=== PATIENT | male | born 1995 | race Caucasian/White ===

== ENCOUNTER 2019-04-04 23:51 | Emergency (ER) | payer MEDICAID, OTHER ==
[2019-04-05 00:03] VITALS: BP 152/82; PULSE 64
[2019-04-05] MEDS ORDERED: Ketorolac 60 MG/2 ML SDV IM ONE (00:18)
[2019-04-05] MEDS ORDERED: Amoxicillin/Clavulanate K 875-125 MG Tab PO ONE (00:18)
[2019-04-05] MEDS ORDERED: traMADol 50 MG Tab PO ONE ×2 (00:18→00:23)
--- NOTE | 2019-04-05 00:18 | EDM.PDOC ---
ED HPI GENERAL MEDICAL PROBLEM - General Chief Complaint: General Stated Complaint: RIGHT EAR PLUGGED? Time Seen by Provider: 04/05/19 00:11 Source of Information: Reports: Patient History Limitations: Reports: No Limitations - History of Present Illness INITIAL COMMENTS - FREE TEXT/NARRATIVE: 23 YO WM presents to ER complaining of right ear pain x 2 days. Pt reports his ear began to hurt and then he developed fullness and decreased hearing in his right ear. Pt reports using cerumenex ear drops without relief. Pt denies fever/ chills, no nausea/vomiting, no dizziness or headache and denies any recent trauma to right ear Duration: Day(s): (2) Location: Reports: Other (right ear pain) Quality: Reports: Ache Severity: Moderate Improves with: Reports: None Worsens with: Reports: None Associated Symptoms: Reports: No Other Symptoms Treatments HALL DIRECTOR: Reports: NSAIDS Right Ear Pain Score (Numeric/FACES): 8 - Related Data Allergies Allergy/AdvReac Type Severity Reaction Status Date / Time No Known Allergies Allergy Verified 04/04/19 23:53 Home Meds: Home Meds Amoxicillin/Potassium Clav [Augmentin 875-125 Tablet] 1 each PO BID #19 tablet 04/05/19 [Rx] traMADol [Ultram] 50 mg PO Q4H PRN #10 tab 04/05/19 [Rx] Past Medical History - Past Health History Medical/Surgical History: Denies Medical/Surgical History HEENT History: Reports: Other (See Below) Musculoskeletal History: Reports: Back Pain, Chronic Endocrine/Metabolic History: Reports: Obesity/BMI 30+ Social & Family History - Family History Family Medical History: Noncontributory - Tobacco Use Smoking Status *Q: Current Some Day Smoker Years of Tobacco use: 7 Packs/Tins Daily: 0.5 - Caffeine Use Caffeine Use: Reports: Soda - Recreational Drug Use Recreational Drug Use: Yes Drug Use in Last 12 Months: Yes Recreational Drug Type: Reports: Marijuana/Hashish Recreational Drug Use Frequency: Daily ED ROS GENERAL - Review of Systems Review Of Systems: See Below Constitutional: Reports: No Symptoms HEENT: Reports: Ear Pain. Denies: Rhinitis, Vertigo Respiratory: Reports: No Symptoms Cardiovascular: Reports: No Symptoms Endocrine: Reports: No Symptoms GI/Abdominal: Reports: No Symptoms : Reports: No Symptoms Musculoskeletal: Reports: No Symptoms Skin: Reports: No Symptoms Neurological: Reports: No Symptoms Psychiatric: Reports: No Symptoms Hematologic/Lymphatic: Reports: No Symptoms Immunologic: Reports: No Symptoms ED EXAM, GENERAL - Physical Exam Exam: See Below Exam Limited By: No Limitations General Appearance: Alert, WD/WN, No Apparent Distress Ears: Normal TMs Ear Exam: Right Ear: Discharge, Erythema, Swelling, Tenderness, Left Ear: Canal Normal, Bilateral Ear: Auricle Normal, TM normal Nose: Normal Inspection, Normal Mucosa, No Blood Throat/Mouth: Normal Inspection, Normal Lips, Normal Teeth, Normal Gums, Normal Oropharynx, Normal Voice, No Airway Compromise Head: Atraumatic, Normocephalic Neck: Normal Inspection, Supple, Non-Tender, Full Range of Motion Respiratory/Chest: No Respiratory Distress, Lungs Clear, Normal Breath Sounds, No Accessory Muscle Use, Chest Non-Tender Cardiovascular: Normal Peripheral Pulses, Regular Rate, Rhythm, No Edema, No Gallop, No JVD, No Murmur, No Rub GI/Abdominal: Normal Bowel Sounds, Soft, Non-Tender, No Organomegaly, No Distention, No Abnormal Bruit, No Mass Back Exam: Normal Inspection, Full Range of Motion, NT Extremities: Normal Inspection, Normal Range of Motion, Non-Tender, Normal Capillary Refill, No Pedal Edema Neurological: Alert, Oriented, CN II-XII Intact, Normal Cognition, Normal Gait, Normal Reflexes, No Motor/Sensory Deficits Psychiatric: Normal Affect Skin Exam: Warm, Dry, Intact, Normal Color, No Rash Lymphatic: No Adenopathy Course - Vital Signs Last Recorded V/S: Last Vital Signs Temp 36.2 C 04/04/19 23:54 Pulse 64 04/04/19 23:54 Resp 16 04/04/19 23:54 BP 152/82 H 04/04/19 23:54 Pulse Ox 93 L 04/04/19 23:54 Departure - Departure Time of Disposition: 00:27 Disposition: Home, Self-Care 01 Condition: Good Clinical Impression: Otitis externa Qualifiers: Otitis externa type: diffuse Chronicity: acute Laterality: right Qualified Code (s): H60.311 - Diffuse otitis externa, right ear - Discharge Information Prescriptions: Amoxicillin/Potassium Clav [Augmentin 875-125 Tablet] 1 each PO BID #19 tablet traMADol [Ultram] 50 mg PO Q4H PRN #10 tab PRN Reason: Pain Instructions: Otitis Externa, [id number] Referrals: Sheila Harman PA-C [Physician] - Additional Instructions: 1. discharge home 2. cipro otic 3 drop to affected ear BID x 10 days 3. tramadol 50mg every 4-6 hours PRN pain 4. motrin 600mg every 6 hours x 5 days 5. augmentin 875mg every 12 hours x 10 days 6. follow up in clinic in 2 days for a recheck 7. return to ER for worsening symptoms - Assessment/Plan Assessment:: 1. right otitis externa Plan: 1. discharge home 2. cipro otic 3 drop to affected ear BID x 10 days 3. tramadol 50mg every 4-6 hours PRN pain 4. motrin 600mg every 6 hours x 5 days 5. augmentin 875mg every 12 hours x 10 days 6. follow up in clinic in 2 days for a recheck 7. return to ER for worsening symptoms
[2019-04-05] MEDS ORDERED: Ciprofloxacin/Hydrocortisone Otic Susp 10 ML Bottle EARRT SCH (00:30)
== END 2019-04-05 00:45 | disposition home or self-care (01) ==
LOC: KA.ED 23:51
DX: H60.311 Diffuse otitis externa, right ear (principal); E66.9 Obesity, unspecified; Z68.38 Body mass index [BMI] 38.0-38.9, adult; F17.210 Nicotine dependence, cigarettes, uncomplicated
CPT/HCPCS: 96372; 99282; A9270; J1885; 99283

== ENCOUNTER 2019-11-25 22:40 | Emergency (ER) | payer SELFPAY ==
[2019-11-25] MEDS ORDERED: Alum Hydrox/Mag Hydrox/Simeth 30 ML, Lidocaine 2% 15 ML PO ONE ×2 (22:54)
[2019-11-25 23:15] VITALS: BP 115/63
--- NOTE | 2019-11-25 23:15 | EDM.PDOC ---
ED HPI GENERAL MEDICAL PROBLEM - General Chief Complaint: General Stated Complaint: Abdominal Pain Time Seen by Provider: 11/25/19 23:06 Source of Information: Reports: Patient History Limitations: Reports: No Limitations - History of Present Illness INITIAL COMMENTS - FREE TEXT/NARRATIVE: Patient is a 24-year-old gentleman who presents to the emergency department this evening via private vehicle with a complaint of abdominal pain. Patient states at approximately 2030 this evening He developed epigastric discomfort. Patient told different versions of his story several times between the nurse and myself. Patient initially said that he awoke from sleep with epigastric discomfort. Then he change his story and said that he was lightheaded and went to sleep and when he woke he took Motrin. Patient change his story again and said he took Tylenol not Motrin. No one else is available for confirmation. Patient does not appear intoxicated or under the influence. Patient denies chest pain, shortness of breath, fever, out of area travel, upper respiratory symptoms, cough, nausea, vomiting, diarrhea, or taking illicit drugs. Onset: Today Onset Time: 20:30 Duration: Hour(s): Location: Reports: Abdomen Quality: Reports: Burning Severity: Mild Improves with: Reports: None Worsens with: Reports: None Associated Symptoms: Reports: No Other Symptoms. 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 Epigastric Pain Score (Numeric/FACES): 8 - Related Data Allergies Allergy/AdvReac Type Severity Reaction Status Date / Time No Known Allergies Allergy Verified 11/25/19 22:45 Home Meds: Home Meds Ibuprofen 200 mg PO Q8H PRN 11/25/19 [History] Past Medical History - Past Health History Medical/Surgical History: Denies Medical/Surgical History HEENT History: Reports: Other (See Below) Musculoskeletal History: Reports: Back Pain, Chronic Endocrine/Metabolic History: Reports: Obesity/BMI 30+ Social & Family History - Family History Family Medical History: Noncontributory - Tobacco Use Smoking Status *Q: Current Every Day Smoker Years of Tobacco use: 6 Packs/Tins Daily: 0.5 - Caffeine Use Caffeine Use: Reports: None - Recreational Drug Use Recreational Drug Use: No ED ROS GENERAL - Review of Systems Review Of Systems: Comprehensive ROS is negative, except as noted in HPI. Constitutional: Reports: No Symptoms HEENT: Reports: No Symptoms Respiratory: Reports: No Symptoms Cardiovascular: Reports: No Symptoms Endocrine: Reports: No Symptoms GI/Abdominal: Reports: Abdominal Pain : Reports: No Symptoms Musculoskeletal: Reports: No Symptoms Skin: Reports: No Symptoms Neurological: Reports: No Symptoms Psychiatric: Reports: No Symptoms Hematologic/Lymphatic: Reports: No Symptoms Immunologic: Reports: No Symptoms ED EXAM, GENERAL - Physical Exam Exam: See Below Exam Limited By: No Limitations General Appearance: Alert, WD/WN, No Apparent Distress Eye Exam: Bilateral Eye: Normal Inspection Nose: Normal Inspection, Normal Mucosa, No Blood Throat/Mouth: Normal Inspection, Normal Oropharynx, No Airway Compromise Head: Atraumatic, Normocephalic Neck: Normal Inspection, Supple Respiratory/Chest: No Respiratory Distress, Lungs Clear, Normal Breath Sounds, No Accessory Muscle Use, Chest Non-Tender Cardiovascular: Normal Peripheral Pulses, Regular Rate, Rhythm, No Murmur GI/Abdominal: Normal Bowel Sounds, Soft, Non-Tender, No Organomegaly, No Distention, No Abnormal Bruit, No Mass Back Exam: Normal Inspection. No: CVA Tenderness (L), CVA Tenderness (R) Extremities: Normal Inspection, No Pedal Edema Neurological: Alert, Oriented, Normal Cognition Psychiatric: Normal Affect, Normal Mood Skin Exam: Warm, Dry, Intact, Normal Color, No Rash Lymphatic: No Adenopathy Course - Vital Signs Last Recorded V/S: Last Vital Signs Temp 97.3 F 11/25/19 22:46 Pulse 56 L 11/25/19 22:46 Resp 20 11/25/19 22:46 BP 114/46 L 11/25/19 22:46 Pulse Ox 97 11/25/19 22:46 - Orders/Labs/Meds Meds: Medications Discontinued Medications Generic Name Dose Route Start Last Admin Trade Name Freq PRN Reason Stop Dose Admin Al Hydroxide/Mg Hydroxide 30 0 ml 11/25/19 22:54 11/25/19 23:01 ml/ Lidocaine HCl 15 ml PO 11/25/19 22:55 45 ml ONETIME ONE Administration - Re-Assessments/Exams Free Text/Narrative Re-Assessment/Exam: 11/25/19 23:21 Patient afebrile, vital signs stable, discomfort relieved after GI cocktail. Patient will follow-up with PCP Departure - Departure Time of Disposition: 23:24 Disposition: Home, Self-Care 01 Condition: Good Clinical Impression: GERD (gastroesophageal reflux disease) Qualifiers: Esophagitis presence: esophagitis presence not specified Qualified Code(s): K21.9 - Gastro-esophageal reflux disease without esophagitis - Discharge Information Instructions: Indigestion, [id number], Heartburn, [id number], Food Choices for Gastroesophageal Reflux Disease, Adult, [id number] Referrals: Alicia Muller MD [Physician] - Additional Instructions: Follow-up at [facility] on Thursday. Return to emergency department sooner if symptoms continue or worsen Sepsis Event Note - Evaluation Sepsis Screening Result: No Definite Risk - Focused Exam Vital Signs: Vital Signs Temp Pulse Resp BP Pulse Ox 11/25/19 22:46 97.3 F 56 L 20 114/46 L 97 Date Exam was Performed: 11/25/19 Time Exam was Performed: 23:06 - Assessment/Plan Assessment:: GERD Plan: Follow-up with PCP
[2019-11-25 23:25] VITALS: PULSE 73
== END 2019-11-25 23:30 | disposition home or self-care (01) ==
LOC: KA.ED 22:40
DX: K21.9 Gastro-esophageal reflux disease without esophagitis (principal); E66.9 Obesity, unspecified; Z68.41 Body mass index [BMI] 40.0-44.9, adult; F17.210 Nicotine dependence, cigarettes, uncomplicated
CPT/HCPCS: 99283; A9270

== ENCOUNTER 2020-03-10 20:50 | Emergency (ER) | payer SELFPAY ==
--- NOTE | 2020-03-10 21:25 | EDM.PDOC ---
ED HPI GENERAL MEDICAL PROBLEM - General Chief Complaint: Abdominal Pain Stated Complaint: STOMACHE ACHE Time Seen by Provider: 03/10/20 21:08 Source of Information: Reports: Patient History Limitations: Reports: No Limitations - History of Present Illness INITIAL COMMENTS - FREE TEXT/NARRATIVE: Patient is a 24-year-old gentleman who presents to the emergency department via private vehicle with his mother for complaint of abdominal pain. Patient states that he believes he is dehydrated. He was at a fair this afternoon and after eating a large meal developed abdominal pain. States abdominal pain was epigastric area. Patient states that he had one episode of vomiting, but since has not been nauseous. Patient was seen here in November for same concerns. Patient states he drank approximately 5-10 ounce glasses of water today. At about 730 p.m., he had the isolated episode of vomiting. Patient denies chest pain, fever, diarrhea, flank pain or suspected covid exposure, Onset: Today Location: Reports: Abdomen Severity: Mild Improves with: Reports: None Worsens with: Reports: None Associated Symptoms: Reports: No Other Symptoms - Related Data Allergies Allergy/AdvReac Type Severity Reaction Status Date / Time No Known Allergies Allergy Verified 03/10/20 21:08 Home Meds: Home Meds Ibuprofen 200 mg PO Q8H PRN 11/25/19 [History] Past Medical History - Past Health History Medical/Surgical History: Denies Medical/Surgical History HEENT History: Reports: Other (See Below) Musculoskeletal History: Reports: Back Pain, Chronic Endocrine/Metabolic History: Reports: Obesity/BMI 30+ Social & Family History - Family History Family Medical History: Noncontributory - Caffeine Use Caffeine Use: Reports: None ED ROS GENERAL - Review of Systems Review Of Systems: Comprehensive ROS is negative, except as noted in HPI. Constitutional: Reports: No Symptoms HEENT: Reports: No Symptoms Respiratory: Reports: No Symptoms Cardiovascular: Reports: No Symptoms Endocrine: Reports: No Symptoms GI/Abdominal: Reports: Abdominal Pain, Nausea, Vomiting : Reports: No Symptoms Musculoskeletal: Reports: No Symptoms Skin: Reports: No Symptoms Neurological: Reports: No Symptoms Psychiatric: Reports: No Symptoms Hematologic/Lymphatic: Reports: No Symptoms Immunologic: Reports: No Symptoms ED EXAM, GI/ABD - Physical Exam Exam: See Below Exam Limited By: No Limitations General Appearance: Alert, WD/WN, No Apparent Distress Throat/Mouth: Normal Inspection, Normal Oropharynx, No Airway Compromise Head: Atraumatic, Normocephalic Neck: Normal Inspection Respiratory/Chest: No Respiratory Distress, Lungs Clear, Normal Breath Sounds, No Accessory Muscle Use, Chest Non-Tender Cardiovascular: Regular Rate, Rhythm, No Murmur GI/Abdominal Exam: Normal Bowel Sounds, Soft, No Organomegaly, No Distention, No Abnormal Bruit, No Mass, Tender (Minimal tenderness epigastric) Back Exam: Normal Inspection. No: CVA Tenderness (L), CVA Tenderness (R) Extremities: Normal Inspection Neurological: Alert, Oriented, Normal Cognition Psychiatric: Normal Affect, Normal Mood Skin Exam: Warm, Dry, Intact, Normal Color, No Rash Course - Orders/Labs/Meds Meds: Medications Discontinued Medications Generic Name Dose Route Start Last Admin Trade Name Freq PRN Reason Stop Dose Admin Al Hydroxide/Mg Hydroxide 30 0 ml 03/10/20 21:09 ml/ Lidocaine HCl 15 ml PO 03/10/20 21:10 ONETIME ONE - Re-Assessments/Exams Free Text/Narrative Re-Assessment/Exam: 03/10/20 21:28 Patient afebrile, vital signs stable, abdominal discomfort resolved following GI cocktail. Mother present. Patient will follow-up at [facility] Departure - Departure Time of Disposition: 21:28 Disposition: Home, Self-Care 01 Condition: Good Clinical Impression: Gastritis - Discharge Information Instructions: Gastritis, Adult, [id number], Food Choices for Gastroesophageal Reflux Disease, Adult, Gastroesophageal Reflux Scan Referrals: Esperanza Cox, JOURNEYMAN PRESS OPERATOR [Primary Care Provider] - Forms: ED Department Discharge Additional Instructions: Follow-up at [facility] on Thursday. Return to emergency department sooner if symptoms continue or worsen. - Assessment/Plan Assessment:: Gastritis Plan: Follow-up with PCP
[2020-03-10] MEDS: Alum Hydrox/Mag Hydrox/Simeth 30 ML, Lidocaine 2% 15 ML PO ONE ×2 (21:32)
[2020-03-10 23:21] VITALS: BP 152/84; PULSE 69
== END 2020-03-10 21:45 | disposition home or self-care (01) ==
LOC: KA.ED 20:50
DX: K29.70 Gastritis, unspecified, without bleeding (principal); E66.9 Obesity, unspecified; Z68.41 Body mass index [BMI] 40.0-44.9, adult
CPT/HCPCS: 99283; A9270

== ENCOUNTER 2023-07-02 05:42 | Emergency (ER) | payer BC, MEDICAID ==
[2023-07-02 06:05] VITALS: BP 127/75; PULSE 90
[2023-07-02] MEDS ORDERED: Ketorolac 30 MG/ML SDV IM ONE (06:49)
== END 2023-07-02 07:15 | disposition home or self-care (01) ==
LOC: KA.ED 05:42
DX: M54.6 Pain in thoracic spine (principal); R07.81 Pleurodynia; E66.9 Obesity, unspecified; Z68.33 Body mass index [BMI] 33.0-33.9, adult; Z79.899 Other long term (current) drug therapy
CPT/HCPCS: 71101-LT; 96372; 99283; J1885

== ENCOUNTER 2023-07-21 16:04 | Emergency (ER) | payer OTHER, BC ==
[2023-07-21] MEDS ORDERED: Ibuprofen 600 MG Tab ONE (16:10)
[2023-07-21] MEDS ORDERED: Ibuprofen 600 MG Tab PO ONE (16:11)
[2023-07-21 16:26] VITALS: BP 134/79; PULSE 81
== END 2023-07-21 17:10 | disposition home or self-care (01) ==
LOC: KA.ED 16:04
DX: S20.211A Contusion of right front wall of thorax, initial encounter (principal); E66.9 Obesity, unspecified; Z79.899 Other long term (current) drug therapy; Z68.33 Body mass index [BMI] 33.0-33.9, adult; W22.8XXA Striking against or struck by other objects, initial encounter
CPT/HCPCS: 71101; 99283; A9270

== ENCOUNTER 2023-08-04 06:23 | Emergency (ER) | payer BC, OTHER ==
[2023-08-04] MEDS ORDERED: Sodium Chloride 0.9% 10 ML Syringe FLUSH PRN ×2 (06:45→06:49)
[2023-08-04 06:55] LABS: BASOPHILS ABSOLUTE AUTO 0.02 10^3/uL (0.00-0.10); BASOPHILS PERCENT AUTO 0.4 % (0.0-1.0); EOSINOPHILS ABSOLUTE AUTO 0.11 10^3/uL (0.10-0.30); HEMOGLOBIN 13.9 g/dL (13.0-17.0); IMMATURE GRAN ABSOLUTE AUTO 0.01 10^3/uL (0.00-0.50); IMMATURE GRAN PERCENT AUTO 0.2 % (0.0-5.0); LYMPHOCYTES ABSOLUTE AUTO 1.87 10^3/uL (1.00-4.00); LYMPHOCYTES PERCENT AUTO 34.1 % (20.0-40.0); MEAN CORPUSCULAR HEMOGLOBIN 29.3 pg (27.0-31.0); MEAN CORPUSCULAR HGB CONC 33.9 g/dL (32.0-36.0); MEAN CORPUSCULAR VOLUME 86.5 fL (82.0-92.0); MEAN PLATELET VOLUME 8.8 fL (7.4-10.4); MONOCYTES ABSOLUTE AUTO 0.44 10^3/uL (0.10-0.80); NEUTROPHILS ABSOLUTE AUTO 3.04 10^3/uL (2.50-7.00); NEUTROPHILS PERCENT AUTO 55.3 % (50.0-70.0); PLATELET COUNT,PLT 192 10^3/uL (150-400); RED BLOOD CELL COUNT 4.74 10^6/uL (4.50-6.00); RED CELL DISTRIBUTION WIDTH 11.8 % (11.5-14.5); WHITE BLOOD CELL COUNT,WBC 5.49 10^3/uL (5.00-10.00)
[2023-08-04 07:08] LABS: ALBUMIN 3.49 g/dL (3.40-5.00); ANION GAP 11.9 mmol/L (5-15); BILIRUBIN TOTAL 0.7 mg/dL (0.2-1.0); CALCIUM 8.2 mg/dL (8.7-10.3); CARBON DIOXIDE,CO2 26.6 mmol/L (21.0-32.0); CREATININE 0.79 mg/dL (0.51-1.17); EST CRCL DRUG DOSING (CG) 155.92 mL/min; POTASSIUM,K 3.5 mmol/L (3.5-5.1); PROTEIN TOTAL,TP 6.3 g/dL (6.4-8.2)
[2023-08-04 07:20] VITALS: BP 129/70; PULSE 56
== END 2023-08-04 07:49 | disposition home or self-care (01) ==
LOC: KA.ED 06:23
DX: R07.89 Other chest pain (principal); E66.9 Obesity, unspecified; Z68.34 Body mass index [BMI] 34.0-34.9, adult; Z20.822 Contact with and (suspected) exposure to COVID-19
CPT/HCPCS: 36415; 71046; 80053; 84484; 85025; 93005; 93010; 99284; 99285; U0002

== ENCOUNTER 2023-09-16 06:09 | Emergency (ER) | payer BC ==
[2023-09-16 07:01] LABS: BASOPHILS ABSOLUTE AUTO 0.02 10^3/uL (0.00-0.10); BASOPHILS PERCENT AUTO 0.3 % (0.0-1.0); EOSINOPHILS ABSOLUTE AUTO 0.08 10^3/uL (0.10-0.30); EOSINOPHILS PERCENT AUTO 1.3 % (1.0-3.0); HEMATOCRIT 44.8 % (40.0-52.0); HEMOGLOBIN 15.1 g/dL (13.0-17.0); IMMATURE GRAN ABSOLUTE AUTO 0.02 10^3/uL (0.00-0.50); IMMATURE GRAN PERCENT AUTO 0.3 % (0.0-5.0); LYMPHOCYTES PERCENT AUTO 35.7 % (20.0-40.0); MEAN CORPUSCULAR HEMOGLOBIN 29.4 pg (27.0-31.0); MEAN CORPUSCULAR HGB CONC 33.7 g/dL (32.0-36.0); MEAN CORPUSCULAR VOLUME 87.2 fL (82.0-92.0); MEAN PLATELET VOLUME 8.4 fL (7.4-10.4); MONOCYTES ABSOLUTE AUTO 0.44 10^3/uL (0.10-0.80); MONOCYTES PERCENT AUTO 7.1 % (2.0-8.0); NEUTROPHILS ABSOLUTE AUTO 3.41 10^3/uL (2.50-7.00); NEUTROPHILS PERCENT AUTO 55.3 % (50.0-70.0); PLATELET COUNT,PLT 189 10^3/uL (150-400); RED BLOOD CELL COUNT 5.14 10^6/uL (4.50-6.00); RED CELL DISTRIBUTION WIDTH 12.1 % (11.5-14.5); WHITE BLOOD CELL COUNT,WBC 6.17 10^3/uL (5.00-10.00)
[2023-09-16 07:18] VITALS: BP 122/73; PULSE 78
[2023-09-16 07:24] LABS: ALANINE AMINOTRANSFERASE,ALT 23 U/L (14-63); ALBUMIN 3.74 g/dL (3.40-5.00); ALKALINE PHOSPHATASE 55 U/L (46-116); ANION GAP 12.4 mmol/L (5-15); BILIRUBIN TOTAL 0.6 mg/dL (0.2-1.0); BLOOD UREA NITROGEN,BUN 12 mg/dL (7-18); CALCIUM 8.4 mg/dL (8.7-10.3); CARBON DIOXIDE,CO2 28.8 mmol/L (21.0-32.0); CHLORIDE,CL 104 mmol/L (98-107); CREATININE 0.87 mg/dL (0.51-1.17); EST CRCL DRUG DOSING (CG) 144.35 mL/min; GLUCOSE RANDOM 94 mg/dL (70-140); POTASSIUM,K 4.2 mmol/L (3.5-5.1); PROTEIN TOTAL,TP 6.8 g/dL (6.4-8.2); SODIUM,NA 141 mmol/L (136-145)
[2023-09-16 07:25] LABS: ASPARTATE AMNIOTRANSFERASE,AST < 9 U/L (15-37); C-REACTIVE PROTEIN < 0.50 mg/dL (0.00-0.50); ESTIMATED GFR 119 mL/min (>=60); ETHANOL BLOOD MEDICAL < 3 mg/dL (NOT DETECTED)
[2023-09-16 08:11] LABS: INFLUENZA A NAA NEGATIVE (NEGATIVE); INFLUENZA B NAA NEGATIVE (NEGATIVE)
[2023-09-16 08:12] LABS: CORONAVIRUS COVID-19 NAA NEGATIVE (NEGATIVE)
== END 2023-09-16 08:30 | disposition home or self-care (01) ==
LOC: KA.ED 06:09
DX: R53.1 Weakness (principal); R42 Dizziness and giddiness; G89.29 Other chronic pain; M25.512 Pain in left shoulder; B34.9 Viral infection, unspecified; E66.9 Obesity, unspecified; Z79.899 Other long term (current) drug therapy; Z68.30 Body mass index [BMI] 30.0-30.9, adult
CPT/HCPCS: 0240U; 36415; 71045; 80053; 80307; 84484; 85025; 85379; 86140; 99285

== ENCOUNTER 2023-09-22 17:08 | Emergency (ER) | payer BC, OTHER ==
[2023-09-22 17:30] VITALS: BP 129/88; PULSE 92
[2023-09-22] MEDS: Mupirocin Oint 22 GM Tube TOP ONE (17:50)
== END 2023-09-22 18:13 | disposition home or self-care (01) ==
LOC: KA.ED 17:08
DX: S61.511A Laceration without foreign body of right wrist, initial encounter (principal); S60.211A Contusion of right wrist, initial encounter; L03.113 Cellulitis of right upper limb; E66.9 Obesity, unspecified; F17.210 Nicotine dependence, cigarettes, uncomplicated; Z79.899 Other long term (current) drug therapy; Z68.30 Body mass index [BMI] 30.0-30.9, adult; X58.XXXA Exposure to other specified factors, initial encounter; Y92.89 Other specified places as the place of occurrence of the external cause; Y99.0 Civilian activity done for income or pay
CPT/HCPCS: 29125; 73110-RT; 73130-RT; 99283; A9270-GY